=== PATIENT | female | born 1975 ===

== ENCOUNTER 2021-05-01 13:32 | Emergency (ER) | payer BC ==
[~2021-05-01] VITALS: Ht 160 cm; Wt 62.1 kg
[2021-05-01] MEDS ORDERED: PEPCID AC20 MG (13:41)
== END 2021-05-01 19:00 | disposition home or self-care (01) ==
LOC: ER 13:32
DX: K29.60 Other gastritis without bleeding (principal); R10.11 Right upper quadrant pain